=== PATIENT | female | born 1945 | race Caucasian/White ===

== ENCOUNTER 2018-08-08 07:07 | Day surgery (SDC) | payer MEDICARE, BC ==
[~2018-08-08] VITALS: Ht 172.7 cm; Wt 115.2 kg
[2018-08-08] MEDS ORDERED: NOVOLIN N100 U/ML SQ ×2 (07:28→07:29)
[2018-08-08] MEDS ORDERED: FOLIC ACID 11 MG/TA1 PO (07:29)
[2018-08-08] MEDS ORDERED: LIPITOR 80MG80 MG PO (07:29)
[2018-08-08] MEDS ORDERED: COZAAR 50MG50 MG/TAB PO (07:29)
[2018-08-08] MEDS ORDERED: ZANTAC 150MG T150 MG PO (07:30)
[2018-08-08] MEDS ORDERED: TOPROL XL 50MG50 MG PO (07:30)
[2018-08-08] MEDS ORDERED: PROFERRIN ES12 MG PO (07:31)
[2018-08-08] MEDS ORDERED: FIBER0.52 GM PO (07:31)
[2018-08-08] MEDS ORDERED: STOOL SOFTENER100 M2 PO (07:32)
[2018-08-08] MEDS ORDERED: ASPIRIN 81M81 MG/TA2 PO (07:32)
[2018-08-08] MEDS ORDERED: MASON NATURAL2000 IU PO (07:33)
[2018-08-08] MEDS ORDERED: VITAMIN B12 681 TAB PO (07:33)
[2018-08-08] MEDS ORDERED: VITAMIN C500 MG PO (07:33)
[2018-08-08 07:34] VITALS: BP 146/70; PULSE 92; TEMP 98.2
[2018-08-08] MEDS ORDERED: MASON NATURAL500 MG PO (07:34)
[2018-08-08 08:50] VITALS: BP 128/67; PULSE 83; TEMP 98.3
[2018-08-08 09:05] VITALS: BP 145/97; PULSE 87
[2018-08-08 09:20] VITALS: BP 154/88; PULSE 80
== END 2018-08-08 09:40 | disposition home or self-care (01) ==
LOC: SDCO 07:07
DX: K29.40 Chronic atrophic gastritis without bleeding (principal); K21.9 Gastro-esophageal reflux disease without esophagitis; K31.89 Other diseases of stomach and duodenum; E11.9 Type 2 diabetes mellitus without complications; E78.00 Pure hypercholesterolemia, unspecified; D64.9 Anemia, unspecified; Z79.4 Long term (current) use of insulin; Z79.82 Long term (current) use of aspirin; Z90.10 Acquired absence of unspecified breast and nipple; Z85.3 Personal history of malignant neoplasm of breast; Z85.038 Personal history of other malignant neoplasm of large intestine; Z86.010 Personal history of colon polyps; Z92.3 Personal history of irradiation
CPT/HCPCS: J2704; J7030

== ENCOUNTER → 2019-03-23 | Outpatient (CLI) | payer MEDICARE, BC ==
[~2019-03-23] MED LIST: ASPIRIN 81M81 MG/TA2 PO; COZAAR 50MG50 MG/TAB PO; FIBER0.52 GM PO; FOLIC ACID 11 MG/TA1 PO; LIPITOR 80MG80 MG PO; MASON NATURAL2000 IU PO; MASON NATURAL500 MG PO; NOVOLIN N100 U/ML SQ; PROFERRIN ES12 MG PO; STOOL SOFTENER100 M2 PO; TOPROL XL 50MG50 MG PO; VITAMIN B12 681 TAB PO; VITAMIN C500 MG PO; ZANTAC 150MG T150 MG PO
[2019-03-23 09:39] LABS: CREATININE, serum 1.13 (0.52-1.25)
== END ==
LOC: COL.LAB 08:43
PROVIDERS: Family Medicine
DX: N28.89 Other specified disorders of kidney and ureter (principal)

== ENCOUNTER → 2019-03-24 | Outpatient (CLI) | payer MEDICARE, BC | LOC: COL.RAD 11:30 | DX: N28.89 Other specified disorders of kidney and ureter (principal); N20.0 Calculus of kidney; Z98.890 Other specified postprocedural states ==